=== PATIENT | female | born 1955 | race Caucasian/White ===

== ENCOUNTER → 2018-12-29 | Outpatient (CLI) | payer BC ==
[~2018-12-29] MED LIST: ACHD5005 PO; ANAS1TAB50 PO; CA C1TAB73 PO; FOLI1TAB57 PO
--- NOTE | 2018-12-29 10:16 | Diagnostic Imaging Report ---
INDICATION: Right hip pain. TECHNIQUE: AP and oblique views of the right hip were obtained. FINDINGS: No fracture or acute bony abnormality is seen. There is no lytic or blastic lesion. IMPRESSION: Negative right hip. Dictated by: Dictated on workstation # [id number]
--- NOTE | 2018-12-29 10:25 | Diagnostic Imaging Report ---
INDICATION: Neck pain. There is mild reversal of cervical lordosis with no listhesis. The vertebral statures are normal. The prevertebral spaces normal. There is degenerative disc space narrowing, endplate sclerosis, osteophytes and facet arthrosis at the mid to lower levels on a chronic basis. IMPRESSION: Lower cervical degenerative disc, endplate and facet disease. No acute appearing bony abnormality. Dictated by: Dictated on workstation # [id number]
== END ==
LOC: RAD FS 09:51
PROVIDERS: ATTEND Nurse Practitioner Family
DX: M50.30 Other cervical disc degeneration, unspecified cervical region (principal); M47.812 Spondylosis without myelopathy or radiculopathy, cervical region; M25.551 Pain in right hip
CPT/HCPCS: 72040; 73502

== ENCOUNTER → 2019-01-21 | Outpatient (CLI) | payer BC ==
--- NOTE | 2019-01-21 12:34 | Diagnostic Imaging Report ---
INDICATION: Shortness of breath and chest heaviness. TIME OF EXAM: 12:18 p.m. COMPARISON: No prior studies are available for comparison. The heart size is normal. The pulmonary vascularity is unremarkable. The lungs are clear. No infiltrate, effusion or pneumothorax is detected. IMPRESSION: No acute cardiopulmonary process is detected. Dictated by: Dictated on workstation # [id number]
== END ==
LOC: RAD FS 12:03
PROVIDERS: ATTEND Physician Assistant
DX: R06.02 Shortness of breath (principal); R07.89 Other chest pain
CPT/HCPCS: 71046

== ENCOUNTER → 2019-06-04 | Outpatient (CLI) | payer BC ==
--- NOTE | 2019-06-04 10:57 | Diagnostic Imaging Report ---
Indication: Cough and shortness of breath x2 months. PA and lateral chest obtained at 1044 hrs. A.m. and compared to 01/21/2019. Heart and mediastinal silhouette are normal in appearance. The lungs appear clear. There is no pneumothorax or pleural fluid. Impression: No acute process in the chest. Dictated by: Dictated on workstation # [id number]
== END ==
LOC: RAD FS 10:33
PROVIDERS: ATTEND Nurse Practitioner Family
DX: R05 Cough (principal); R06.02 Shortness of breath
CPT/HCPCS: 71046

== ENCOUNTER 2019-06-06 18:41 | Emergency (ER) | payer BC ==
[~2019-06-06] VITALS: Ht 168.9 cm; Wt 84.8 kg
[2019-06-06] MEDS ORDERED: NS IV 1000 ML 1,000 ML IV SCH (19:25)
[2019-06-06] MEDS ORDERED: ACETAMINOPHEN 325 MG TABLET PO ONE (19:30)
[2019-06-06 19:39] LABS: BASOPHILS % (AUTO) 0 % (0-10); EOSINOPHILS # (AUTO) 0.2 10^3/uL (0.0-0.3); EOSINOPHILS % (AUTO) 2 % (0-10); HEMATOCRIT 38 % (35-52); HEMOGLOBIN 12.4 G/DL (11.5-16.0); LYMPHOCYTES # (AUTO) 1.4 X 10^3 (1.0-4.0); LYMPHOCYTES % (AUTO) 14 % (12-44); MEAN CORPUSCULAR HEMOGLOBIN 30 PG (25-34); MEAN CORPUSCULAR HGB CONC 32 G/DL (32-36); MEAN CORPUSCULAR VOLUME 94 FL (80-99); MEAN PLATELET VOLUME 10.3 FL (7.4-10.4); MONOCYTES # (AUTO) 0.6 X 10^3 (0.0-1.0); MONOCYTES % (AUTO) 6 % (0-12); NEUTROPHILS # (AUTO) 7.6 X 10^3 (1.8-7.8); NEUTROPHILS % (AUTO) 78 % (42-75); PLATELET COUNT 186 10^3/uL (130-400); RED CELL DISTRIBUTION WIDTH 14.3 % (10.0-14.5); WHITE BLOOD COUNT 9.8 10^3/uL (4.3-11.0)
[2019-06-06 19:42] LABS: BILIRUBIN,URINE NEGATIVE (NEGATIVE); CLARITY,URINE CLEAR; GLUCOSE, URINE (UA) NEGATIVE (NEGATIVE); KETONES,URINE NEGATIVE (NEGATIVE); NITRITE,URINE NEGATIVE (NEGATIVE); PROTEIN,URINE NEGATIVE (NEGATIVE)
[2019-06-06 19:43] LABS: LEUKOCYTE ESTERASE ,URINE NEGATIVE (NEGATIVE); UROBILINOGEN,URINE 0.2 MG/DL (NORMAL)
[2019-06-06 20:13] LABS: COLOR,URINE YELLOW
[2019-06-06 20:17] LABS: BILIRUBIN,TOTAL 0.5 MG/DL (0.1-1.0); BUN/CREATININE RATIO 12; CALCIUM 9.9 MG/DL (8.5-10.1); CARBON DIOXIDE 27 MMOL/L (21-32); CHLORIDE 104 MMOL/L (98-107); CREATININE SERUM 0.91 MG/DL (0.60-1.30); GFR ESTIMATED > 60; GLUCOSE 125 MG/DL (70-105); SODIUM 143 MMOL/L (135-145)
[2019-06-06 20:18] LABS: ALANINE AMINOTRANSFERASE 35 U/L (0-55); ALBUMIN 4.3 GM/DL (3.2-4.5); ALKALINE PHOSPHATASE 47 U/L (40-136); TOTAL PROTEIN 7.1 GM/DL (6.4-8.2)
--- NOTE | 2019-06-06 20:22 | ED Cardiac General ---
History of Present Illness General Chief Complaint: Cardiac/General Problems Stated Complaint: LIGHTHEADED,SOB,TINGLING IN LT ARM Nursing Triage Note: Patient reports she has had shortness of breath for two weeks, has also had dizziness/lightheadedness for two weeks, she has seen her PCP and had some testing/medication adustments. She states that she began having shooting sensations down her left arm from her left upper back/left shoulder down to her elbow this afternoon that lasted for several hours. She states the sensation has now resolved, but she still wishes to be evaluated. History of Present Illness Date Seen by Provider: Jun 06, 2019 Time Seen by Provider: 19:00 Initial Comments The patient is a 64-year-old female with a history of hypertension, hyperlipidemia, no history of coronary artery disease or heart failure, no history of any respiratory pathology or tobacco abuse, history of breast cancer status post lumpectomy and on an estrogen blocking agent. About a month ago the patient was diagnosed with a GI pathology which was treated with a prolonged course of budesonide. The patient presents with concern for about one month or more of progressively worsening dyspnea with exertion. She states that she is ev en a little short of breath at rest, although symptoms are primarily noted when she tries to get up and about. Associated mild lightheadedness at times, although not now. No associated fevers, nausea or vomiting, upper respiratory congestion/rhinorrhea, cough of any kind, chest pain, orthopnea/PND, swelling or pain of extremities, abdominal pain, flank pain, back pain, dysuria or h ematuria, changes in bowel habits aside from very mild loose stools over the past few days, fewer than 5 episodes per day. Patient states she has never had symptoms of dyspnea with exertion like this before. Patient has a secondary concern about some nowresolved tingling to her upper left arm which was mild and had onset earlier today. She denies any headache, other focal weakness, numbness, tingling, neck stiffness, vision changes, shortness of breath or chest pain with this episode. Patient followed up with her primary regarding the dyspnea a couple of days ago and was planning to follow up again but was concerned and decided to come in for evaluation of her symptoms in view of the episode of tingling to her left arm occurring prior to arrival. Allergies and Home Medications Allergies Coded Allergies: No Known Drug Allergies (Unverified , 06/08/15) Home Medications Anastrozole 1 Mg Tablet, 1 MG PO DAILY, (Reported) Hydrocodone Bit/Acetaminophen 1 Each Tablet, 1-2 EACH PO Q4H PRN for PAIN Prescribed by: THERESE MARIE on 06/15/15 1044 Mv,Ca,Min/Iron Fum/FA/Vit K 1 Each Tablet, 1 EACH PO DAILY, (Reported) Patient Home Medication List Home Medication List Reviewed: Yes Review of Systems Review of Systems Constitutional: see HPI Past Irbwsys-Lysmno-Vltdhf Hx Past Med/Social Hx: Reviewed Nursing Past Med/Soc Hx Patient Social History Alcohol Use: Denies Use Recreational Drug Use: No Smoking Status: Never a Smoker 2nd Hand Smoke Exposure: No Recent Foreign Travel: No Contact w/Someone Who Travel: No Recent Infectious Disease Expo: No Recent Hopitalizations: No Physical Abuse: No Sexual Abuse: No Mistreated: No Fear: No Immunizations Up To Date Date of Influenza Vaccine: Jun 07, 2015 Seasonal Allergies Seasonal Allergies: No Past Medical History Surgeries: Yes (FALLOPIAN TUBE SURGERY SEVERAL TIMES, LUMPECTOMY AND LYMPH NODES) Respiratory: No Cardiac: No Neurological: No Reproductive Disorders: Yes Female Reproductive Disorders: Endometriosis Sexually Transmitted Disease: No HIV/AIDS: No Genitourinary: No Gastrointestinal: No Musculoskeletal: Yes Degenerate Disk Disease, Osteoporosis, Arthritis, Back Injury, Chronic Back Pain Endocrine: No HEENT: No Loss of Vision: Bilateral Hearing Impairment: Denies Cancer: Yes Breast Psychosocial: No Integumentary: No Blood Disorders: No Adverse Reaction/Blood Tranf: No Family Medical History Reviewed Nursing Family Hx Physical Exam Vital Signs Vital Signs - First Documented 06/06/19 19:23 Temp 36.9 Pulse 76 Resp 18 B/P (MAP) 168/71 (103) Pulse Ox 100 O2 Delivery Room Air Capillary Refill : Less Than 3 Seconds Height, Weight, BMI Height: 5'6.00" Weight: 180lbs. oz. 81.376990jy; 29.00 BMI Method: General Appearance: No Apparent Distress Other comments This is an older female appearing nontoxic and in no acute distress. Head is normocephalic and atraumatic. Neck is supple and nontender. Oropharynx is moist. Lungs are clear to auscultation in all stations. There is a normal S1 and S2 without rubs or gallops and capillary refill is appropriate, less than 2 seconds globally. Abdomen is soft, nontender and nondistended. Skin is warm and dry without cyanosis, clubbing or edema. Psychiatrically, the patient demonstrates appropriate mood and affect and is alert. From a neurologic standpoint, cranial nerves II through XII are intact and there is no lateralizing deficits noted. Speech is normal. Language is normal. Coordination is normal. There is no dysmetria to finger to nose bilaterally. Strength is 5 out of 5 in all joints of bilateral upper and lower extremities. Sensation is intact to light touch in bilateral upper and lower extremities. Patient relates with a narrow, steady gait in the emergency department. She is alert and oriented 4. Examination of the bilateral upper and lower extremities reveals that all are neurovascularly intact and there is no dependent peripheral edema noted to the lower extremities. No calf pain or swelling noted bilaterally. Progress/Results/Core Measures Results/Orders Lab Results Laboratory Tests Test 06/06/19 18:45 06/06/19 19:00 06/06/19 19:25 Range/Units Urine Color YELLOW Urine Clarity CLEAR Urine pH 7.0 5-9 Urine Specific [place] 1.010 L 1.016-1.022 Urine Protein NEGATIVE NEGATIVE Urine Glucose (UA) NEGATIVE NEGATIVE Urine Ketones NEGATIVE NEGATIVE Urine Nitrite NEGATIVE NEGATIVE Urine Bilirubin NEGATIVE NEGATIVE Urine Urobilinogen 0.2 NORMAL MG/DL Urine Leukocyte Esterase NEGATIVE NEGATIVE Urine RBC (Auto) NEGATIVE NEGATIVE Urine RBC NONE /HPF Urine WBC NONE /HPF Urine Crystals NONE /LPF Urine Bacteria NEGATIVE /HPF Urine Casts NONE /LPF Urine Mucus NEGATIVE /LPF Urine Culture Indicated NO Sodium Level 143 135-145 MMOL/L Potassium Level 4.0 3.6-5.0 MMOL/L Chloride Level 104 98-107 MMOL/L Carbon Dioxide Level 27 21-32 MMOL/L Anion Gap 12 5-14 MMOL/L Blood Urea Nitrogen 11 7-18 MG/DL Creatinine 0.91 0.60-1.30 MG/DL Estimat Glomerular Filtration Rate > 60 BUN/Creatinine Ratio 12 Glucose Level 125 H 70-105 MG/DL Calcium Level 9.9 8.5-10.1 MG/DL Corrected Calcium 9.7 8.5-10.1 MG/DL Total Bilirubin 0.5 0.1-1.0 MG/DL Aspartate Amino Transf (AST/SGOT) 31 5-34 U/L Alanine Aminotransferase (ALT/SGPT) 35 0-55 U/L Alkaline Phosphatase 47 40-136 U/L Troponin I < 0.30 <0.30 NG/ML Total Protein 7.1 6.4-8.2 GM/DL Albumin 4.3 3.2-4.5 GM/DL White Blood Count 9.8 4.3-11.0 10^3/uL Red Blood Count 4.09 L 4.35-5.85 10^6/uL Hemoglobin 12.4 11.5-16.0 G/DL Hematocrit 38 35-52 % Mean Corpuscular Volume 94 80-99 FL Mean Corpuscular Hemoglobin 30 25-34 PG Mean Corpuscular Hemoglobin Concent 32 32-36 G/DL Red Cell Distribution Width 14.3 10.0-14.5 % Platelet Count 186 130-400 10^3/uL Mean Platelet Volume 10.3 7.4-10.4 FL Neutrophils (%) (Auto) 78 H 42-75 % Lymphocytes (%) (Auto) 14 12-44 % Monocytes (%) (Auto) 6 0-12 % Eosinophils (%) (Auto) 2 0-10 % Basophils (%) (Auto) 0 0-10 % Neutrophils # (Auto) 7.6 1.8-7.8 X 10^3 Lymphocytes # (Auto) 1.4 1.0-4.0 X 10^3 Monocytes # (Auto) 0.6 0.0-1.0 X 10^3 Eosinophils # (Auto) 0.2 0.0-0.3 10^3/uL Basophils # (Auto) 0.0 0.0-0.1 10^3/uL My Orders Orders - RAYMOND CASTILLO MD Cbc With Automated Diff (06/06/19 19:25) Comprehensive Metabolic Panel (06/06/19 19:25) Troponin I Fs (06/06/19 19:25) Ekg Tracing (06/06/19 19:25) Ct Angio Chest W (06/06/19 19:25) Ua Culture If Indicated (06/06/19 19:25) Acetaminophen Tablet/Caplet (Tylenol T (06/06/19 19:30) Ed Iv/Invasive Line Start (06/06/19 19:25) Ns Iv 1000 Ml (Sodium Chloride 0.9%) (06/06/19 19:25) BNP (06/06/19 19:00) Thyroid Stimulating Hormone (06/06/19 19:00) Thyroxine T4 (06/06/19 19:00) Iohexol Injection (Omnipaque 350 Mg/Ml 1 (06/06/19 20:30) Received Contrast (Hold Metformin- Contr (06/06/19 20:30) Sodium Chloride Flush (Catheter Flush Sy (06/06/19 20:30) Ns (Ivpb) (Sodium Chloride 0.9% Ivpb Bag (06/06/19 20:30) Medications Given in ED Current Medications Medications Dose Ordered Sig/Britany Route Start Time Stop Time Status Last Admin Dose Admin Acetaminophen 975 mg ONCE ONCE PO 06/06/19 19:30 06/06/19 19:31 DC 06/06/19 19:51 975 MG Iohexol 125 ml ONCE ONCE IV 06/06/19 20:30 06/06/19 20:31 DC 06/06/19 20:31 125 ML Sodium Chloride 10 ml NEEDED PRN IV 06/06/19 20:30 06/06/19 20:32 10 ML Sodium Chloride 100 ml ONCE ONCE IV 06/06/19 20:30 06/06/19 20:31 DC 06/06/19 20:32 80 ML Vital Signs/I&O 06/06/19 19:23 Temp 36.9 Pulse 76 Resp 18 B/P (MAP) 168/71 (103) Pulse Ox 100 O2 Delivery Room Air Blood Pressure Mean: 103 Progress Progress Note : Time: 20:23 Progress Note Vital signs and clinical examination quite reassuring patient with essentially normal examination as well as normal oxygen saturation and other vitals here in the emergency department. She is speaking comfortably in full sentences. She has recently been on a prolonged course of by mouth steroids. We will need to evaluate her for pulmonary embolism as well as other causes for her dyspnea. We will check labs and EKG and CT angiography of the chest and we'll give a liter fluid bolus as well as Tylenol. I discussed with the patient that if her workup is reassuring here in the emergency department that she will likely be cleared for release to follow up tomorrow with her primary care physician to discuss next steps in testing. She understands and agrees with this plan of care. Update 2129: Workup unremarkable and reassuring. BNP and thyroid studies still pending at time of departure however as these need to be couriered over to [place] there will be a significant delay and they are unlikely to change her management tonight. Patient does not have any evidence of heart failure by clinical examination or chest imaging and as noted other labs are entirely without significant evidence of acute process. Patient does have a thyroid nodule which will need to be followed up on and this is been discussed with her. She is to follow-up tomorrow with her primary care physician in the clinic and understands that if she feels worse instead of better or develops other new symptoms of concern that she will need to return immediately for reevaluation. All questions are answered. Comment Sinus rhythm, rate 77, no acute ST elevation or depression, AL 134, QRS 106, QTC 460, EP interpretation. Diagnostic Imaging Comments CT ANGIO CHEST W PROCEDURE: CT angiography of the chest. TECHNIQUE: After intravenous administration of contrast, thin section axial CT angiography of the chest was performed. 3D MIP reconstructions were made. All CT scans use one or more of the following dose optimizing techniques: automated exposure control, MA and/or KvP adjustment based on a patient size and exam type, or iterative reconstruction. INDICATION: Dyspnea. COMPARISON: Chest radiograph of 06/04/2019. FINDINGS: Vasculature: No pulmonary emboli. No CT evidence of pulmonary hypertension or right ventricular strain. Thoracic aorta is normal in caliber. No aortic dissection or pseudoaneurysm. Heart and mediastinum: There is a part solid and cystic left thyroid nodule measuring 1.3 x 1.7 cm. No supraclavicular, axillary, or intra-thoracic lymphadenopathy. The heart is normal in size without pericardial effusion. Pleura: No pleural effusion or pneumothorax. Lungs and airway: No endoluminal lesion in the trachea or central bronchi. No pulmonary mass or consolidation. Clustered centrilobular micronodules within the inferior aspect of the right upper lobe are present. Upper abdomen: Allowing for the phase of contrast, no acute abnormality in the upper abdomen is seen. Musculoskeletal: No concerning osseous lesion. IMPRESSION: 1. No acute cardiopulmonary process. Specifically, no pulmonary emboli or acute aortic syndrome. 2. Indeterminate left thyroid nodule. Recommend outpatient followup thyroid ultrasound for further characterization. Dictated on workstation # [id number] Departure Impression Primary Impression: Dyspnea on exertion Additional Impression: Lightheadedness Disposition: 01 HOME, SELF-CARE Condition: Improved Departure-Patient Inst. Referrals: [facility] (PCP) Primary Care Physician JITENDRA ASIF APRN (Family) Primary Care Physician Patient Instructions: Shortness of Breath (Dyspnea) Add. Discharge Instructions: Please call the clinic in the morning to follow-up with her primary care physician very closely in the next 1-2 days as discussed. Return immediately to the emergency department with worsening symptoms or other new concerns. RAYMOND CASTILLO MD Jun 06, 2019 20:22
[2019-06-06] MEDS ORDERED: NS 100 ML (IVPB) BAG IV ONE (20:30)
[2019-06-06] MEDS ORDERED: HOLD METFORMIN - RECEIVED CONTRAST 20 ML VIAL IV SCH (20:30)
[2019-06-06] MEDS ORDERED: CATHETER FLUSH 10 ML SYR IV PRN (20:30)
[2019-06-06] MEDS ORDERED: IOHEXOL 350 MG/ML 150 ML (OMNIPAQUE 350) VIAL IV ONE (20:30)
[2019-06-06 20:59] LABS: BACTERIA,URINE NEGATIVE /HPF
--- NOTE | 2019-06-06 21:01 | Diagnostic Imaging Report ---
PROCEDURE: CT angiography of the chest. TECHNIQUE: After intravenous administration of contrast, thin section axial CT angiography of the chest was performed. 3D MIP reconstructions were made. All CT scans use one or more of the following dose optimizing techniques: automated exposure control, MA and/or KvP adjustment based on a patient size and exam type, or iterative reconstruction. INDICATION: Dyspnea. COMPARISON: Chest radiograph of 06/04/2019. FINDINGS: Vasculature: No pulmonary emboli. No CT evidence of pulmonary hypertension or right ventricular strain. Thoracic aorta is normal in caliber. No aortic dissection or pseudoaneurysm. Heart and mediastinum: There is a part solid and cystic left thyroid nodule measuring 1.3 x 1.7 cm. No supraclavicular, axillary, or intra-thoracic lymphadenopathy. The heart is normal in size without pericardial effusion. Pleura: No pleural effusion or pneumothorax. Lungs and airway: No endoluminal lesion in the trachea or central bronchi. No pulmonary mass or consolidation. Clustered centrilobular micronodules within the inferior aspect of the right upper lobe are present. Upper abdomen: Allowing for the phase of contrast, no acute abnormality in the upper abdomen is seen. Musculoskeletal: No concerning osseous lesion. IMPRESSION: 1. No acute cardiopulmonary process. Specifically, no pulmonary emboli or acute aortic syndrome. 2. Indeterminate left thyroid nodule. Recommend outpatient followup thyroid ultrasound for further characterization. Dictated by: Dictated on workstation # [id number]
[2019-06-06 21:48] VITALS: BP 145/46
== END 2019-06-06 21:48 | disposition home or self-care (01) ==
LOC: EDUNIT# 18:41 → ER FS 18:42
DX: R06.09 Other forms of dyspnea (principal); R42 Dizziness and giddiness; I10 Essential (primary) hypertension; E78.5 Hyperlipidemia, unspecified; Z85.3 Personal history of malignant neoplasm of breast
CPT/HCPCS: 36415; 71275; 80053; 81000; 83880; 84436; 84443; 84484; 85025; 93005; 96360

== ENCOUNTER → 2019-06-23 | Outpatient (CLI) | payer BC ==
[~2019-06-23] MED LIST changes: +CATHETER FLUSH 10 ML SYR IV PRN; +REGADENOSON 0.4 MG/5 ML SYR (LEXISCAN) IV ONE
[2019-06-23 13:18] VITALS: BP 166/87
[2019-06-23 13:30] VITALS: BP 154/102
--- NOTE | 2019-06-23 17:57 | STRESS TEST ---
DATE OF SERVICE: 06/23/2019 LEXISCAN MYOVIEW STRESS TEST REPORT REFERRING PHYSICIAN: [facility]. Baseline heart rate is 68. Baseline blood pressure 166/87. Baseline EKG is sinus rhythm with no ischemic changes. In summary, the patient was injected with 10.02 mCi of technetium-99 Myoview and the resting images were obtained. Then, the patient received 0.4 mg of Lexiscan followed by 29.4 mCi of technetium-99 Myoview. Throughout the test, there were no EKG changes. The resting and stress images were reviewed and compared in the short axis, horizontal long axis, and vertical long axis views. Review of the images showed good radiotracer uptake with no significant ischemia or infarction. SSS is 2, SDS 2, TID value 1.1. On the gated images, the left ventricle appeared to be in normal size with normal contractility. Calculated ejection fraction 73%. CONCLUSION: 1. The patient tolerated Lexiscan well. 2. No significant ischemia or infarction on SPECT images. 3. Normal left ventricular size with normal contractility. Calculated ejection fraction 73%. Job ID: [id number] DocumentID: [id number] Dictated Date: 06/23/2019 17:41:36 Track Inspecting Supervisor Date: 06/23/2019 17:56:34 Dictated By: JUMANA KRISHNAN MD
== END ==
LOC: CARD 09:12
PROVIDERS: ATTEND Nurse Practitioner Family
DX: R06.02 Shortness of breath (principal)
CPT/HCPCS: 78452; 93017; 93306

== ENCOUNTER → 2019-08-24 | Outpatient (CLI) | payer BC ==
[~2019-08-24] MED LIST changes: -CATHETER FLUSH 10 ML SYR IV PRN; -REGADENOSON 0.4 MG/5 ML SYR (LEXISCAN) IV ONE
--- NOTE | 2019-08-24 15:47 | Diagnostic Imaging Report ---
PROCEDURE: MRI lumbar spine. TECHNIQUE: Multiplanar, multisequence MRI of the lumbar spine was performed without contrast. INDICATION: Back pain. COMPARISON: No priors. FINDINGS: Lumbar stature is normal. Marrow signal intensity is normal. The alignment is normal. Lower thoracic cord, the conus, and the nerves of the cauda equina are normal. No intradural abnormality. No paravertebral mass, hemorrhage, or fluid collection. T12-L1: This level and disc appear normal. There is no stenosis. L1-L2: There is disc desiccation, loss of disc stature, and bulging posteriorly mildly flattening and indenting the ventral thecal sac. Canal stenosis is mild, and the neural foramina are widely patent. L2-L3: Posterior disc bulge is asymmetric to the left but does not result in a substantial degree of foraminal, recess, or canal stenosis. L3-L4: Osteophyte disc material, anterior greater than posterior, at this level does not result in significant stenosis. L4-L5: There is thickening of the ligamenta flava, hypertrophic facet arthrosis, and desiccated bulging disc material which result in mild left and evkl-ea-zpgvfuiz right foraminal stenosis as well as cweb-jv-ovefcrgo canal narrowing. L5-S1: There is hypertrophic facet arthrosis with disc desiccation and loss of disc stature. The neural foramina, the lateral recesses, and the spinal canal, however, show no significant stenosis. IMPRESSION: 1. Multilevel degenerative changes to the discs, endplates, and posterior elements with multilevel predominantly mild stenoses, listed level by level above. 2. Normal alignment. No marrow edema. No acute-appearing abnormality. Dictated by: Dictated on workstation # [id number]
== END ==
LOC: RAD 14:13
PROVIDERS: ATTEND Physician Assistant
DX: M47.817 Spondylosis without myelopathy or radiculopathy, lumbosacral region (principal); M51.37 Other intervertebral disc degeneration, lumbosacral region; M51.26 Other intervertebral disc displacement, lumbar region; M48.061 Spinal stenosis, lumbar region without neurogenic claudication
CPT/HCPCS: 72148

== ENCOUNTER → 2019-09-16 | Outpatient (CLI) | payer BC ==
[2019-09-16 17:23] LABS: BUN/CREATININE RATIO 18; CALCIUM 9.2 MG/DL (8.5-10.1); CARBON DIOXIDE 25 MMOL/L (21-32); CHLORIDE 103 MMOL/L (98-107); CREATININE SERUM 0.65 MG/DL (0.60-1.30); GFR ESTIMATED > 60; GLUCOSE 120 MG/DL (70-105); POTASSIUM 3.7 MMOL/L (3.6-5.0); SODIUM 139 MMOL/L (135-145)
[2019-09-16 17:24] LABS: ALANINE AMINOTRANSFERASE 25 U/L (0-55); ALBUMIN 4.3 GM/DL (3.2-4.5); ALKALINE PHOSPHATASE 51 U/L (40-136); BILIRUBIN,TOTAL 0.4 MG/DL (0.1-1.0); HEMATOCRIT 37 % (35-52); HEMOGLOBIN 12.2 G/DL (11.5-16.0); MEAN CORPUSCULAR HEMOGLOBIN 30 PG (25-34); MEAN CORPUSCULAR HGB CONC 33 G/DL (32-36); MEAN CORPUSCULAR VOLUME 89 FL (80-99); RED CELL DISTRIBUTION WIDTH 12.6 % (10.0-14.5); TOTAL PROTEIN 6.9 GM/DL (6.4-8.2); WHITE BLOOD COUNT 5.9 10^3/uL (4.3-11.0)
[2019-09-16 17:25] LABS: BASOPHILS % (AUTO) 0 % (0-10); EOSINOPHILS # (AUTO) 0.1 10^3/uL (0.0-0.3); EOSINOPHILS % (AUTO) 2 % (0-10); LYMPHOCYTES # (AUTO) 1.5 X 10^3 (1.0-4.0); LYMPHOCYTES % (AUTO) 26 % (12-44); MEAN PLATELET VOLUME 10.4 FL (7.4-10.4); MONOCYTES # (AUTO) 0.6 X 10^3 (0.0-1.0); MONOCYTES % (AUTO) 10 % (0-12); NEUTROPHILS # (AUTO) 3.7 X 10^3 (1.8-7.8); NEUTROPHILS % (AUTO) 62 % (42-75); PLATELET COUNT 181 10^3/uL (130-400)
== END ==
LOC: LAB FS 13:26
PROVIDERS: ATTEND Internal Medicine Hematology & Oncology
DX: C50.411 Malignant neoplasm of upper-outer quadrant of right female breast (principal)
CPT/HCPCS: 36415; 80053; 83615; 85025; 86300

== ENCOUNTER → 2020-02-18 | Outpatient (CLI) | payer BC ==
--- NOTE | 2020-02-18 11:20 | Diagnostic Imaging Report ---
PROCEDURE: MRI left joint lower extremity without contrast. TECHNIQUE: Multiplanar, multisequence non contrast-enhanced MRI of the left lower extremity was accomplished. INDICATION: Ankle injury November 2019 with pain laterally. COMPARISON: None FINDINGS: No acute fracture or dislocation is seen in the left ankle. Alignment appears normal. No joint effusion is seen. There are mild degenerative changes in the midfoot and ankle. The anterior and posterior syndesmotic ligaments are intact. The anterior talofibular ligament is not seen, and is likely chronically torn. The posterior talofibular ligament is intact. The calcaneofibular ligament is not well seen distally, and may be torn as well. The deep fibers of the deltoid ligament demonstrate mild fiber irregularity but are predominantly intact. The spring ligament appears intact. The plantar fascia is intact. The sinus tarsi demonstrates normal fatty signal. The Achilles tendon is intact. The flexor tendons are intact. There is a longitudinal split tear of the inframalleolar peroneus brevis tendon with moderate fluid in the peroneal tendon sheath. The extensor tendons appear intact. There is moderate edema in the Kager's fat pad. Mild subcutaneous edema is seen about the ankle. No soft tissue fluid collections or masses are seen. The tarsal tunnel appears intact. IMPRESSION: 1. Split tearing of the left peroneus brevis tendon with moderate peroneal tenosynovitis. 2. Chronic lateral ligamentous injuries. Low-grade partial tear of the deep fibers of the deltoid ligament, likely chronic as well. Dictated by: Dictated on workstation # [id number]
== END ==
LOC: RAD 10:07
PROVIDERS: ATTEND Podiatrist
DX: S86.312A Strain of muscle(s) and tendon(s) of peroneal muscle group at lower leg level, left leg, initial encounter (principal); S93.422A Sprain of deltoid ligament of left ankle, initial encounter; M65.872 Other synovitis and tenosynovitis, left ankle and foot
CPT/HCPCS: 73721

== ENCOUNTER → 2020-05-10 | Outpatient (CLI) | payer BC ==
--- NOTE | 2020-05-10 12:41 | Diagnostic Imaging Report ---
PATIENT HISTORY: RIGHT-SIDED CHEST WALL PAIN. TECHNIQUE: Two views of the chest. COMPARISON: 06/04/2019. FINDINGS: The lung volumes are normal. No focal consolidation is seen. No large pleural effusion or pneumothorax is seen. The cardiomediastinal silhouette is normal in size and contour. No acute osseous abnormality is seen. IMPRESSION: No acute pulmonary abnormality seen. Dictated by: Dictated on workstation # [id number]
--- NOTE | 2020-05-10 15:57 | Diagnostic Imaging Report ---
INDICATION: Right-sided chest wall pain. COMPARISON: None. FINDINGS: Four radiographic views of the right ribs were obtained. No healing or displaced right-sided rib fractures are identified. Included portions of the right hemithorax are clear. IMPRESSION: 1. No healing or displaced right-sided rib fractures. Dictated by: Dictated on workstation # [id number]
== END ==
LOC: RAD FS 10:37
PROVIDERS: ATTEND Nurse Practitioner Family
DX: R07.89 Other chest pain (principal)
CPT/HCPCS: 71046; 71100

== ENCOUNTER → 2020-06-27 | Outpatient (CLI) | payer BC ==
[2020-06-27 09:29] LABS: BASOPHILS % (AUTO) 0 % (0-10); EOSINOPHILS # (AUTO) 0.2 10^3/uL (0.0-0.3); EOSINOPHILS % (AUTO) 3 % (0-10); HEMATOCRIT 39 % (35-52); HEMOGLOBIN 12.6 g/dL (11.5-16.0); LYMPHOCYTES # (AUTO) 1.6 10^3/uL (1.0-4.0); LYMPHOCYTES % (AUTO) 24 % (12-44); MEAN CORPUSCULAR HEMOGLOBIN 30 pg (25-34); MEAN CORPUSCULAR HGB CONC 33 g/dL (32-36); MEAN CORPUSCULAR VOLUME 90 fL (80-99); MEAN PLATELET VOLUME 10.6 fL (9.0-12.2); MONOCYTES # (AUTO) 0.4 10^3/uL (0.0-1.0); MONOCYTES % (AUTO) 7 % (0-12); NEUTROPHILS # (AUTO) 4.4 10^3/uL (1.8-7.8); NEUTROPHILS % (AUTO) 66 % (42-75); PLATELET COUNT 167 10^3/uL (130-400); WHITE BLOOD COUNT 6.6 10^3/uL (4.3-11.0)
[2020-06-27 09:48] LABS: ALANINE AMINOTRANSFERASE 25 U/L (0-55); ALBUMIN 4.1 GM/DL (3.2-4.5); ALKALINE PHOSPHATASE 60 U/L (40-136); BILIRUBIN,TOTAL 0.6 MG/DL (0.1-1.0); BUN/CREATININE RATIO 15; CALCIUM 9.2 MG/DL (8.5-10.1); CARBON DIOXIDE 27 MMOL/L (21-32); CHLORIDE 107 MMOL/L (98-107); CREATININE SERUM 0.72 MG/DL (0.60-1.30); GFR ESTIMATED > 60; GLUCOSE 108 MG/DL (70-105); POTASSIUM 3.6 MMOL/L (3.6-5.0); SODIUM 142 MMOL/L (135-145); TOTAL PROTEIN 6.8 GM/DL (6.4-8.2)
--- NOTE | 2020-06-27 10:44 | Diagnostic Imaging Report ---
INDICATION: Postmenopausal. COMPARISON: None. TECHNIQUE/COMPARISON: The bone mineral density of the hips and spine was measured. There are no prior studies available for comparison. FINDINGS: The total T score for the spine is -2.5. This does indicate borderline osteoporosis. The total T score for the left hip is -0.9 and for the right hip is -1.1. The T score for each femoral neck is -1.3. AP Spine L1-L4: [BMD (g/cm2): 0.904] [T-Score: -2.5] [Z-Score: -1.6] [BMD Previous: na] [BMD % Change: na] LT Hip Neck: [BMD (g/cm2): 0.856] [T-Score: -1.3] [Z-Score: -0.3] LT Hip Total: [BMD (g/cm2):0.891] [T-Score:-0.9] [Z-Score: -0.2] [BMD Previous: na] [BMD % Change: na] RT Hip Neck: [BMD (g/cm2):0.852] [T-Score:-1.3] [Z-Score:-0.3] RT Hip Total: [BMD (g/cm2):0.872] [T-score:-1.1] [Z-Score:-0.4] [BMD Previous:na] [BMD % Change:na] *Indicates significant change from prior examination based on 95% confidence level. World Health Organization criteria for BMD interpretation classify patients as Normal (T-score at or above -1.0), Osteopenic (T-score between -1.0 and -2.5) or Osteoporotic (T-score at or below -2.5). LIMITATIONS AND MODIFICATION: None. FRACTURE RISK (FRAX SCORE): The ten year probability of (%): Major Osteoporotic Fracture: [13.7] Hip Fracture: [1.2] IMPRESSION: 1. The bone mineral density of the spine does indicate borderline osteoporosis. 2. There is osteopenia of the femoral necks and the total right hip. The T score for the total left hip is at the low end of normal. 3. See below National Osteoporosis Foundation guidelines on when to potentially initiate pharmacologic therapy. Based on the National Osteoporosis Foundation Guidelines, pharmacologic treatment should be initiated in any of the following, unless clinical conditions suggest otherwise: * Any patient with prior fragility fracture of the hip or vertebrae. A spine fracture indicates 5X risk for subsequent spine fracture and 2X risk for subsequent hip fracture. * Osteoporosis (T-score <-2.5). * Postmenopausal women and men age 50 and older with low bone mass/osteopenia (T-score between -1.0 and -2.5) by DXA and 10-year major osteoporotic fracture greater than 20% or a 10-year probability of hip fracture greater than 3%. These fracture risks are supplied above in the FRAX score, if applicable. * Clinician judgement and/or patient preferences may indicate treatment for people with 10-year fracture probabilities above or below these levels. Dictated by: Dictated on workstation # [id number]
--- NOTE | 2020-06-27 15:50 | Diagnostic Imaging Report ---
EXAM: Digital mammogram bilateral screening COMPARISON: This study was compared to the prior exams of 06/10/2019. There are no current complaints. Reportedly, the patient had a lumpectomy on the right in 2013 followed by radiation therapy and chemotherapy. FINDINGS: On this exam, the scar formation and the surgical clips are again seen in the upper outer quadrant of the right breast. There is no sign of a mass in this area to suggest recurrent malignancy. The fibroglandular tissue in both breasts is heterogeneously dense. This does limit the sensitivity of this exam. Overall, there does not appear to have been any adverse change. There is no primary or secondary sign of malignancy noted. IMPRESSION: The postsurgical changes involving the right breast appear stable. There is no evidence for malignancy involving either breast. ACR BI-RADS Category 1: Negative. Result letter will be mailed to the patient. Note: At least 10% of breast cancer is not imaged by mammography. Dictated by: Dictated on workstation # [id number]
== END ==
LOC: RAD 08:57
PROVIDERS: ATTEND Internal Medicine Hematology & Oncology
DX: Z12.31 Encounter for screening mammogram for malignant neoplasm of breast (principal); C50.411 Malignant neoplasm of upper-outer quadrant of right female breast; M85.88 Other specified disorders of bone density and structure, other site
CPT/HCPCS: 36415; 77063; 77067; 77080; 80053; 83615; 85025; 86300

== ENCOUNTER → 2021-05-04 | Outpatient (CLI) | payer BC ==
[~2021-05-04] MED LIST changes: +GADOBUTROL 10 MMOL/10 ML (GADAVIST) VIAL IV ONE
--- NOTE | 2021-05-04 16:55 | Diagnostic Imaging Report ---
PROCEDURE: MR imaging cervical spine with and without contrast. TECHNIQUE: Multiplanar and multisequence MRI of the cervical spine was performed with and without contrast. DATE: May 04, 2021. COMPARISON: None. INDICATION: 65-year-old female, neck pain and left upper extremity paresthesias and pain. FINDINGS: There is normal cervical spine alignment. The bone marrow signal is unremarkable. The visualized spinal cord is unremarkable. The disc heights are well preserved. C2-C3: There is a small posterior disc osteophyte complex. There are mild left uncovertebral and left facet degenerative changes. There is moderate left foraminal narrowing. There is no spinal canal stenosis. C3-C4: There is no disc bulge. There are right uncovertebral degenerative changes. There is mild right foraminal narrowing. There is no spinal canal stenosis. C4-C5: There is no disc bulge. The uncovertebral and facet joints are unremarkable. There is no foraminal narrowing. There is no spinal canal stenosis. C5-C6: There is a small posterior disc osteophyte complex. There are left greater than right uncovertebral degenerative changes. There is severe left foraminal narrowing. There is moderate spinal canal stenosis. C6-C7: There is a posterior disc osteophyte complex. The uncovertebral and facet joints are unremarkable. There is no foraminal narrowing. There is moderate spinal canal stenosis. C7-T1: There is a posterior disc osteophyte complex. The uncovertebral and facet joints are unremarkable. There is no foraminal narrowing. There is mild spinal canal stenosis. There is a T2 hyperintense left thyroid nodule measuring 16 mm in size and a T2 hyperintense right thyroid nodule measuring 10 mm in size. There is no identified abnormal contrast enhancement. IMPRESSION: Multilevel disc, uncovertebral and facet degenerative changes of the cervical spine as described in detail level by level above. Dictated by: Dictated on workstation # [id number]
== END ==
LOC: RAD 11:00
PROVIDERS: ATTEND Allergy & Immunology
DX: M47.812 Spondylosis without myelopathy or radiculopathy, cervical region (principal); M48.02 Spinal stenosis, cervical region; M25.78 Osteophyte, vertebrae; E04.2 Nontoxic multinodular goiter
CPT/HCPCS: 72156

== ENCOUNTER → 2021-09-03 | Outpatient (CLI) | payer BC ==
[~2021-09-03] MED LIST changes: -GADOBUTROL 10 MMOL/10 ML (GADAVIST) VIAL IV ONE
--- NOTE | 2021-09-03 11:46 | Diagnostic Imaging Report ---
INDICATION: Right knee pain. TIME OF EXAM: 10:21 AM Multiple views right knee were obtained. Alignment is normal. Joint spaces are well maintained. Articular surfaces are smooth. No fracture or dislocation or effusion is seen. IMPRESSION: No acute abnormality is detected. Dictated by: Dictated on workstation # [id number]
--- NOTE | 2021-09-03 11:59 | Diagnostic Imaging Report ---
INDICATION: Right foot pain. TIME OF EXAM: 10:24 AM 3 views of the right foot were obtained. Metatarsals are intact. Phalanges are intact. Midfoot and hindfoot are unremarkable apart from a plantar calcaneal spur. No fractures are seen. IMPRESSION: No acute bony abnormality is detected. Dictated by: Dictated on workstation # [id number]
== END ==
LOC: RAD FS 10:06
PROVIDERS: ATTEND Nurse Practitioner
DX: M79.671 Pain in right foot (principal); M25.561 Pain in right knee
CPT/HCPCS: 73562; 73630

== ENCOUNTER → 2022-07-02 | Outpatient (CLI) | payer BC ==
--- NOTE | 2022-07-02 19:41 | Diagnostic Imaging Report ---
INDICATION: 67-year-old female, postmenopausal. Screening for osteoporosis. COMPARISON: June 27, 2020. FINDINGS: AP Spine L1-L4: [BMD (g/cm2): 1.042] [T-Score: -1.3] [Z-Score: -0.4] [BMD Previous: 0.904] [BMD % Change: 15.3*] LT Hip Neck: [BMD (g/cm2): 0.874] [T-Score: -1.2] [Z-Score: -0.1] LT Hip Total: [BMD (g/cm2):0.937] [T-Score:-0.6] [Z-Score: 0.2] [BMD Previous: 0.891] [BMD % Change: 5.2] RT Hip Neck: [BMD (g/cm2):0.913] [T-Score:-0.9] [Z-Score:0.2] RT Hip Total: [BMD (g/cm2):0.923] [T-score:-0.7] [Z-Score:0.1] [BMD Previous:0.872] [BMD % Change:5.8*] *Indicates significant change from prior examination based on 95% confidence level. World Health Organization criteria for BMD interpretation classify patients as Normal (T-score at or above -1.0), Osteopenic (T-score between -1.0 and -2.5) or Osteoporotic (T-score at or below -2.5). LIMITATIONS AND MODIFICATION: None. FRACTURE RISK (FRAX SCORE): The ten year probability of (%): Major Osteoporotic Fracture: [13.6] Hip Fracture: [1.2] IMPRESSION: 1. Osteopenia (Low bone mass). 2. There has been a statistically significant increase in BMD since prior exam, detailed above. 3. See below National Osteoporosis Foundation guidelines on when to potentially initiate pharmacologic therapy. Based on the National Osteoporosis Foundation Guidelines, pharmacologic treatment should be initiated in any of the following, unless clinical conditions suggest otherwise: * Any patient with prior fragility fracture of the hip or vertebrae. A spine fracture indicates 5X risk for subsequent spine fracture and 2X risk for subsequent hip fracture. * Osteoporosis (T-score <-2.5). * Postmenopausal women and men age 50 and older with low bone mass/osteopenia (T-score between -1.0 and -2.5) by DXA and 10-year major osteoporotic fracture greater than 20% or a 10-year probability of hip fracture greater than 3%. These fracture risks are supplied above in the FRAX score, if applicable. * Clinician judgement and/or patient preferences may indicate treatment for people with 10-year fracture probabilities above or below these levels. Dictated by: Dictated on workstation # [id number]
== END ==
LOC: RAD 12:30
PROVIDERS: ATTEND Internal Medicine Hematology & Oncology
DX: Z13.820 Encounter for screening for osteoporosis (principal); M85.80 Other specified disorders of bone density and structure, unspecified site; C50.411 Malignant neoplasm of upper-outer quadrant of right female breast; Z78.0 Asymptomatic menopausal state
CPT/HCPCS: 77080

== ENCOUNTER → 2023-04-04 | Outpatient (CLI) | payer BC ==
--- NOTE | 2023-04-04 12:05 | Diagnostic Imaging Report ---
PROCEDURE: MRI left joint lower extremity without contrast. TECHNIQUE: Multiplanar, multisequence non contrast-enhanced MRI of the left lower extremity was accomplished. INDICATION: Chronic ankle pain and edema. COMPARISONS: None available. FINDINGS: TENDONS: Achilles is intact. Split longitudinal tear of the peroneus brevis involving its retromalleolar and inframalleolar segments. The distal insertion of the peroneus brevis remains intact on the base of the fifth. Peroneus longus is normal where seen. Posterior tibialis, flexor digitorum longus and flexor hallucis longus are normal. Anterior tibialis, extensor hallucis longus and extensor digitorum longus are normal. LIGAMENTS: Anterior and posterior distal tibiofibular ligaments are intact. Anterior talofibular, calcaneofibular and posterior talofibular ligaments are normal. Medial deltoid ligamentous complex is normal. Spring ligament is intact. Dorsal talonavicular ligament is intact. BONES AND CARTILAGE: No osteochondral lesion of the talar dome. No fracture or stress fracture. The articular cartilage of the tibiotalar and posterior subtalar joints are normal. SOFT TISSUES: There is T2 hyperintense edema signal involving the lateral cord of the plantar fascia at its origin. However, tendon is not torn or retracted. A small amount of reactive edema is present in the plantar surface of the calcaneus. No ankle joint effusion. Sinus tarsi is normal in appearance. No mass effect on the tarsal tunnel. IMPRESSION: 1. 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 Its insertion on the base of the fifth remains intact. 2. Tendinopathy with reactive inflammation at the origin of the lateral cord of the plantar fascia can be seen in setting of active plantar fasciitis. No tendon tear. Dictated by: Dictated on workstation # [id number]
== END ==
LOC: RAD 09:09
PROVIDERS: ATTEND Podiatrist Foot & Ankle Surgery
DX: S91.012A Laceration without foreign body, left ankle, initial encounter (principal); M77.52 Other enthesopathy of left foot and ankle; X58.XXXA Exposure to other specified factors, initial encounter
CPT/HCPCS: 73721

== ENCOUNTER 2023-04-14 05:34 | Outpatient (CLI) | payer MEDICARE, OTHER ==
[~2023-04-14] VITALS: Ht 170.2 cm; Wt 86.4 kg
[2023-04-14] MEDS ORDERED: MONT-40 PO ×2 (14:44)
[2023-04-14] MEDS ORDERED: ALEN70TA80 PO ×2 (14:44)
[2023-04-14] MEDS ORDERED: LOSA50TA63 PO ×2 (14:44)
[2023-04-14] MEDS ORDERED: DENO60DI SQ ×2 (14:44)
[2023-04-14] MEDS ORDERED: ATOR80TA76 PO ×2 (14:44)
== END 2023-04-14 15:15 ==
LOC: PREOP 05:34
PROVIDERS: ATTEND Podiatrist Foot & Ankle Surgery
DX: Z01.818 Encounter for other preprocedural examination (principal)

== ENCOUNTER 2023-04-21 08:07 | Day surgery (SDC) | payer MEDICARE, OTHER ==
[2023-04-21] VITALS (12 sets, daily range): BP systolic 118–179; BP diastolic 58–89
[~2023-04-21] VITALS: Ht 170.2 cm; Wt 86.4 kg
[~2023-04-21 08:07] MED LIST changes: +ALEN70TA80 PO; +ATOR80TA76 PO; +DENO60DI SQ; +LOSA50TA63 PO; +MONT-40 PO
[2023-04-21] MEDS: LACTATED RINGERS 1,000 ML IV PRN ×2 (08:50→12:19)
[2023-04-21] MEDS ORDERED: ceFAZolin INJECTION 1,000 MG in NS (IVPB) 50 ML 50 ML IV ONE (09:00)
[2023-04-21] MEDS ORDERED: ONDANSETRON 4 MG/2 ML (SDV) Z0FRAN IV ONE (09:30)
[2023-04-21] MEDS ORDERED: SCOPOLAMINE 1.5 MG (TRANSDERM-SCOP) PATCH TOP ONE (09:30)
[2023-04-21] MEDS ORDERED: FAMOTIDINE INJ 20MG/2ML VIAL IV ONE (09:30)
[2023-04-21] MEDS ORDERED: LIDOCAINE 1% w/EPI 1:100,000 20 ML VIAL ONE (09:32)
[2023-04-21] MEDS ORDERED: BUPIVACAINE 0.5% 30 ML VIAL ONE (09:32)
[2023-04-21] MEDS ORDERED: dexAMETHasone INJ 10 MG/ML 1 ML VIAL ONE ×2 (09:32→09:42)
--- NOTE | 2023-04-21 09:41 | Progress Note-Pre Operative ---
Pre-Operative Progress Note Date of Available H&P: Apr 21, 2023 Date H&P Reviewed: Apr 21, 2023 Time H&P Reviewed: 09:40 Pre-Operative Diagnosis: Peroneal tendon tear, plantar fasciitis, left LLOYD GABRIEL DPBlossom Apr 21, 2023 09:41
[2023-04-21] MEDS ORDERED: proPOfol 200 MG/20 ML (DIPRIVAN) VIAL IV ONE (09:42)
[2023-04-21] MEDS ORDERED: PROPOFOL INJECTION 50 ML IV ONE ×2 (09:42→11:25)
[2023-04-21] MEDS ORDERED: ONDANSETRON 4 MG/2 ML (SDV) Z0FRAN ONE ×2 (09:42→11:25)
[2023-04-21] MEDS ORDERED: LIDOCAINE PF 2% 5 ML VIAL ONE (09:42)
[2023-04-21] MEDS ORDERED: fentaNYL INJECTION 100 MCG/2 ML VIAL ONE (09:43)
[2023-04-21] MEDS ORDERED: BUPIVACAINE 0.5% 30 ML VIAL INJ ONE (11:00)
[2023-04-21] MEDS ORDERED: dexAMETHasone INJ 10 MG/ML 1 ML VIAL INJ ONE (11:01)
[2023-04-21] MEDS ORDERED: KETOROLAC INJ 30 MG/ML VIAL ONE (11:45)
--- NOTE | 2023-04-21 11:53 | Progress Note-Post Operative ---
Post-Operative Progess Note Surgeon (s)/Political Reporter (s) Surgeon LLOYD GABRIEL DPM Political Reporter: none Pre-Operative Diagnosis Peroneal tendon tear, plantar fasciitis, left Post-Operative Diagnosis Same Procedure & Operative Findings Date of Procedure 04/21/23 Procedure Performed/Findings Peroneal tendon repair, left Plantar fascial release, left Anesthesia Type General Estimated Blood Loss Estimated blood loss (mL): minimal Specimens/Packing Specimens Removed peroneal tendon, left LLOYD GABRIEL DPM Apr 21, 2023 11:53
--- NOTE | 2023-04-21 11:58 | Anesthesia-General Post-Op ---
General Patient Condition Mental Status/LOC: Same as Preop Cardiovascular: Satisfactory Nausea/Vomiting: Absent Respiratory: Satisfactory Pain: Controlled Complications: Absent Post Op Complications Complications None Follow Up Care/Instructions Patient Instructions None needed. Anesthesia/Patient Condition Patient Condition Patient is doing well, no complaints, stable vital signs, no apparent adverse anesthesia problems. No complications reported per nursing. ESTRELLA RIVERA CRNA Apr 21, 2023 11:58
[2023-04-21] MEDS ORDERED: ACHD5005 PO ×2 (11:59)
[2023-04-21] MEDS ORDERED: PROMETHAZINE INJ 25 MG/ML (PHENERGAN) AMP IVP ONE (12:00)
[2023-04-21] MEDS ORDERED: LACTATED RINGERS 1,000 ML IV SCH (12:00)
[2023-04-21] MEDS ORDERED: HYDROcodone/ACETAMINOPHEN 5 MG/325 MG TABLET PO PRN (12:00)
[2023-04-21] MEDS ORDERED: fentaNYL INJECTION 100 MCG/2 ML VIAL IVP ONE (12:00)
[2023-04-21] MEDS ORDERED: morphine INJ 10 MG/ML 1ML (SYR OR VIAL) IVP ONE (12:00)
[2023-04-21] MEDS ORDERED: ONDANSETRON 4 MG/2 ML (SDV) Z0FRAN IVP PRN (12:00)
--- NOTE | 2023-04-21 14:58 | Physical Therapy Ortho Eval ---
PT Orthopedic Evaluation Type of Surgery Peroneal tendon tear, plantar fasciitis, left Prior Level of Function Current Living Status: Spouse Locomotion (Upon Admit): Independent Established Durable Medical Eq: Front Wheeled Walker, Crutches knee scooter Subjective Entry Into Home: Ramp Motor Control Motor Control: Motor Control WNL ROM ROM: WFL, except focal deficit Strength Strength: WFL Transfer SCALE: Activities may be completed with or without assistive devices. 5-Kfdwymoptn-lkehzyf completes the activity by him/herself with no assistance from a helper. 5-Set-up or Clean-up Assistance-helper sets up or cleans up; patient completes activity. [place] assists only prior to or following the activity. 4-Supervision or Touching Assistance-helper provides verbal cues and/or touching/steadying and/or contact guard assistance as patient completes activity . Assistance may be provided throughout the activity or intermittently. 3-Partial/Moderate Assistance-helper does LESS THAN HALF the effort. [place] lifts, holds or supports trunk or limbs, but provides less than half the effort. 2-Substantial/Maximal Assistance-helper does MORE THAN HALF the effort. [place] lifts or holds trunk or limbs and provides more than half the effort. 9-Dktehgyjq-srjsvd does ALL the effort. Patient does none of the effort to complete the activity. Or, the assistance of 2 or more helpers is required for the patient to complete the activity. If activity was not attempted, code reason: 7-Patient Refused. 9-Not Applicable-not attempted and the patient did not perform the activity before the current illness, exacerbation or injury. 10-Not Attempted due to Environmental Limitations-(lack of equipment, weather restraints, etc.). 88-Not Attempted due to Medical Conditions or Safety Concerns. Transfers (B, C, W/C) (QC): 6 Gait Gait Assistive Device: FWW Right Lower Extremity: Right Weight Bearing Status RLE: Full Weight Bearing Left Lower Extremity: Left Weight Bearing Status LLE: Non Weight Bearing Gait (QC): 4 Distance: 100' Treatment Rendered Treatment: Gait Train Assessment/Goals Goal Time Frame: 1 Visit Safe Ambulation: Yes Plan Treatment Plan: Discharge PT/Family Agrees to Plan: Yes Time Time In: 1435 Time Out: 1445 Total Billed Treatment Time: 10 Billed [facility] Apr 21, 2023 14:58
--- NOTE | 2023-04-21 20:54 | OPERATIVE REPORT ---
DATE OF SERVICE: 04/21/2023 SURGEON: Yanci Gabriel DPM. PREOPERATIVE DIAGNOSES: 1. Split tear of the peroneus brevis tendon, left. 2. Tenosynovitis, left. 3. Plantar fasciitis, left. POSTOPERATIVE DIAGNOSES: 1. Split tear of the peroneus brevis tendon, left. 2. Tenosynovitis, left. 3. Plantar fasciitis, left. PROCEDURE: 1. Peroneal tendon repair, left. 2. Plantar fascial release, open left. WOUND CLASS: Clean. ANESTHESIA: General. HEMOSTASIS: Pneumatic thigh tourniquet at 300 mmHg. INDICATIONS: This 67-year-old female presents complaining of pain to the left foot and ankle. Conservative therapy has met with unsatisfactory results and the patient is agreeable to surgical intervention after risks and complications were discussed at length. No guarantees were extended to the patient and she is willing to proceed. DESCRIPTION OF PROCEDURE: The patient was brought back to the operating table and placed in secure supine position. A general anesthetic was then induced. Appropriate timeout was performed. Pneumatic thigh tourniquet was placed on the left lower extremity over several layers of padding. The left foot was then prepped and draped in normal sterile manner. The left foot was then elevated, allowed to exsanguinate after which the tourniquet was inflated to 300 mmHg. Attention was then directed to the lateral aspect of the left foot and ankle where a 5 cm curvilinear incision was created just posterior to the lateral malleolus extending inferiorly and anteriorly along the peroneal tendons area. The incision was deepened in the same plane with great care to identify and retract all vital neurovascular structures. Great care was taken to retract the sural nerve. The incision was deepened down to the deep fascia where the peritenon was released with sharp dissection with great care not to cut underlying structures. The tendon sheath was inspected and found to have quite a bit of tenosynovitis noted. This was sharply resected from the area. There was quite a bit of fluid within the tendon sheath as well. The peroneus longus tendon was identified and retracted. Underneath this was the peroneus brevis tendon and found to be indeed have a longitudinal rent from just posterior aspect of the lateral malleolus to the inferior aspect. This loose tendon was sharply debrided and sent for gross and microscopic evaluation. The remaining tendon was roughened after which a tubulization was performed with a 2-0 Ethibond. The tendon had no other pathology identified along its visualized root. The wound was flushed with copious amounts of normal saline and closure was performed in layers. A deep closure including the peritenon was performed with 3-0 Vicryl. Subcutaneous tissue was reapproximated with 4-0 Vicryl, skin closure with 4-0 Prolene in a horizontal mattress type stitch. Attention was then directed to the plantar medial aspect of the left heel where just anterior to the calcaneal tuberosity, a 3.5 cm medial to lateral incision was created. The incision was deepened in the same plane with great care to identify and retract all vital neurovascular structures. The incision was deepened down through the adipose tissue down to the plantar fascia. The medial and central bands were identified and found to be thickened, release was performed with great care to not traumatize the underlying muscular tissue. A small section of the plantar fascia was released, especially to the central band. This allowed for decreased pressure along the plantar and central bands of the plantar fascia. The wounds were flushed with copious amounts of normal saline and closure was performed in layers. Deep closure was performed with a 3-0 Vicryl as well as 4-0 Vicryl, skin closure with 4-0 Prolene in a simple interrupted type stitch. Postoperative injection consisted of 20 mL of 0.5% Marcaine plain injected in a local infusion to the surgical sites. Postoperative dressing consisted of Betadine-soaked Adaptic, sterile 4 x 4's, sterile Kerlix, soft roll, ABD pads, a posterior splint secured with two Anuj wraps. The patient tolerated the anesthesia and procedure well and was transported from the operating room to the recovery room with vital signs stable and vascular status intact to all digits of the left foot. The patient is to be nonweightbearing on the left lower extremity until further notice we anticipate approximately 3 weeks. We will see the patient back in the office in 10 days period of time or sooner if necessary. Job ID: [id number] DocumentID: [id number] Dictated Date: 04/21/2023 12:08:03 Student Finance Advisor Date: 04/21/2023 20:52:00 Dictated By: YANCI GABRIEL DPM
== END 2023-04-21 14:43 | disposition home or self-care (01) ==
LOC: SDC 08:07
PROVIDERS: ATTEND Podiatrist Foot & Ankle Surgery
DX: S86.312A Strain of muscle(s) and tendon(s) of peroneal muscle group at lower leg level, left leg, initial encounter (principal); M65.872 Other synovitis and tenosynovitis, left ankle and foot; M72.2 Plantar fascial fibromatosis
CPT/HCPCS: 87081

== ENCOUNTER → 2023-06-19 | Outpatient (CLI) | payer MEDICARE, OTHER ==
--- NOTE | 2023-06-19 16:53 | Diagnostic Imaging Report ---
PROCEDURE: US left lower extremity venous. TECHNIQUE: Multiple real-time grayscale images were obtained over the left lower extremity in various projections. Additional duplex Doppler and color Doppler images were also obtained. INDICATION: Pain and swelling. FINDINGS: The left common femoral, superficial femoral, popliteal veins and tibial veins demonstrate normal response to compression, augmentation, and Valsalva. There are no abnormal left lower extremity fluid collections or masses. IMPRESSION: No evidence of deep venous thrombosis in the left lower extremity. Dictated by: Dictated on workstation # [id number]
== END ==
LOC: RAD 16:14
PROVIDERS: ATTEND Podiatrist Foot & Ankle Surgery
DX: M79.605 Pain in left leg (principal); R60.0 Localized edema